=== PATIENT | male | born 1965 | race Caucasian/White ===

== ENCOUNTER 2016-09-12 06:00 | Emergency (ER) | payer BC, OTHER ==
--- NOTE | 2016-09-12 06:17 | ERNOTE ---
<Liam Osorio - Last Filed: 09/12/16 08:02> Medical Problem HPI - Narrative Date of Service: 09/12/16 - General Chief Complaint: General Assessment Time Seen by Provider: 09/12/16 06:12 Source: patient Exam Limitations: no limitations - Immun/Allergies/Home Medications Immunizations: IMMUNIZATION HX Immunizations Up to Date Yes History of Influenza Vaccine No Hx Pneumococcal Vaccination No Allergies/Adverse Reactions: Allergies Penicillins Allergy (Unknown, Verified 09/12/16 06:06) Hives Home Medications: HOME MEDICATIONS HYDROcodone/ACETAMINOPHEN [[place] 5-325] 1 - 2 tab PO QID PRN #30 tab 09/12/16 [ Last Taken Unknown] Omeprazole 20 mg PO DAILY 09/12/16 [Last Taken Unknown] Tamsulosin HCl [Flomax] 0.4 mg PO DAILY@1800 #30 cap 09/12/16 [Last Taken Unknown] - History of Present History Narrative: Right lower groin pain awakened him from sleep. No hx. of trauma. No uti sxs'. Denies hx. of trauma to scrotum. No swelling or erythema. No hx of lifting or phx of hernia. States it hurts more to back of right testicle. Urinated at home but it did not help. Timing: constant Review of Systems - Review of Systems Constitutional: Present: See HPI EYE: Present: no symptoms reported ENT: Present: no symptoms reported Respiratory: Present: no symptoms reported Cardiology: Present: no symptoms reported Gastrointestinal/Abdominal: Present: no symptoms reported Genitourinary: Present: See HPI Musculoskeletal: Present: See HPI Skin: Present: no symptoms reported Neurological: Present: no symptoms reported Endocrine: Present: no symptoms reported Hematologic/Lymphatic: Present: no symptoms reported Psych: Present: no symptoms reported All Other Systems: All systems neg except as marked - Patient's Past Medical History Patient History - Medical: No pertinent hx, GERD Patient History - Cardiac/Respiratory: No pertinent hx Patient History - Cancer: No Hx of Cancer Patient History - Surgical Procedures: Back Surgery Patient History - Other: None - Family History Mother Family History - Cancer: Breast - Social History Living Situations: home Psych History: No pertinent hx Smoking Status: Current every day smoker Have you smoked in the past 12 months: Yes - Immunizations Immunizations Up to Date: Yes Hx Pneumococcal Vaccination: No History of Influenza Vaccine: No Physical Exam - Physical Exam General Appearance: Present: wd/wn, alert, moderate distress Gastrointestinal/Abdominal: Present: normal bowel sounds, nontender, nondistended, soft, no organomegaly. Absent: mass, hernia Male Genitals Exam: Present: normal genitalia, no hernia, epididymal tenderness , scrotum tenderness (R), testicular tenderness (R) Back Exam: Present: normal inspection, no CVA tenderness Neurological Exam: Present: alert, oriented Skin Exam: Present: normal color ED Progress - Results and Orders Patient's Lab Results:: I have reviewed the patient's lab results. Results and Orders: UA WITH 25-50 RBC BUT NO BACTERIA SEEN. - Vital Signs Patient's Vital Signs:: I have reviewed the patient's vital signs. Vital Signs: Vital Signs 09/12/16 06:03 Temperature 36.2 C L Pulse Rate 87 Respiratory 20 Rate Blood Pressure 162/86 O2 Sat by Pulse 99 Oximetry - Progress/Reassessment Chief Complaint: General Assessment - Transfer of Care Physician Sign Out: Liam Osorio Receiving Physician: Hue Phillips Expected Disposition: Discharge Departure - Departure Clinical Impression: Testicular/scrotal pain, Nephrolithiasis Disposition: Home self-care Condition: Good Instructions: Kidney Stones, Uidg-[id number] Referrals: Carlos Martinez MD [Primary Care Provider] - Prescriptions: HYDROcodone/ACETAMINOPHEN [[place] 5-325] 1 - 2 tab PO QID PRN #30 tab PRN Reason: Pain Tamsulosin HCl [Flomax] 0.4 mg PO DAILY@1800 #30 cap <Hue Phillips - Last Filed: 09/12/16 09:13> Medical Problem HPI - Immun/Allergies/Home Medications Immunizations: IMMUNIZATION HX Immunizations Up to Date Yes History of Influenza Vaccine No Hx Pneumococcal Vaccination No ED Progress - Vital Signs Vital Signs: Vital Signs 09/12/16 09/12/16 09/12/16 06:03 07:29 08:09 Temperature 36.2 C L Pulse Rate 87 77 77 Respiratory 20 16 16 Rate Blood Pressure 162/86 146/81 139/83 O2 Sat by Pulse 99 94 96 Oximetry - CT/Ultrasound CT/Ultrasound Narrative: CT shows two nephroliths, U/S is normal Plan - Plan Plan: Pt was seen and evaluated and tests ordered by previous provider. By the time I saw pt he was pain free but his UA revealed large amount of blood. Ct susequently revealed two nephroliths, sizes 3.0 and 2.8 respectively. Will treat as such
[2016-09-12] MEDS ORDERED: KETOROLAC TROMETHAMINE 30 MG/ML VIAL IM ONE (06:26)
[2016-09-12] MEDS ORDERED: KETOROLAC TROMETHAMINE 30 MG/ML VIAL ONE (07:34)
[2016-09-12 07:38] LABS: Urine Bilirubin Negative (NEGATIVE); Urine Blood 250 /ul (NEGATIVE); Urine Ketone Negative (NEGATIVE); Urine Nitrite Negative (NEGATIVE); Urine Protein Negative (NEGATIVE); Urine Specific Gravity 1.025 SP.GR. (1.005-1.030); Urine Urobilinogen Normal (NORMAL)
[2016-09-12 07:50] LABS: Urine Color Yellow
[2016-09-12 07:51] LABS: Urine Appearance Clear; Urine Bacteria None Seen; Urine RBC 25-50 /hpf (0-5); Urine WBC None Seen /hpf (0-5)
[2016-09-12 09:36] VITALS: BP 147/89
== END 2016-09-12 09:57 | disposition home or self-care (01) ==
LOC: ER 06:00
DX: N50.811 Right testicular pain (principal); N50.82 Scrotal pain; N20.0 Calculus of kidney; F17.200 Nicotine dependence, unspecified, uncomplicated; K21.9 Gastro-esophageal reflux disease without esophagitis